=== PATIENT | male | born 1955 | race Caucasian/White ===

== ENCOUNTER 2017-07-26 07:55 | Outpatient (CLI) | payer OTHER ==
[~2017-07-26 07:55] MED LIST: LEVOTHROID50 MCG PO
== END 2017-07-26 15:00 | disposition home or self-care (01) ==
LOC: SONOGRAMA 07:55
DX: K80.00 Calculus of gallbladder with acute cholecystitis without obstruction (principal)

== ENCOUNTER 2017-07-26 08:03 | Outpatient (CLI) | payer OTHER | END 2017-07-26 15:00 | disposition home or self-care (01) | LOC: RX STUDY 08:03 | DX: K42.9 Umbilical hernia without obstruction or gangrene (principal) ==

== ENCOUNTER 2019-01-02 13:29 | Outpatient (CLI) | payer OTHER | END 2019-01-02 13:46 | disposition home or self-care (01) | LOC: SONOGRAMA 13:29 | DX: N40.1 Benign prostatic hyperplasia with lower urinary tract symptoms (principal) ==

== ENCOUNTER 2019-01-27 07:39 | Outpatient (CLI) | payer OTHER | END 2019-01-27 17:00 | disposition home or self-care (01) | LOC: TOM 07:39 | DX: R51 Headache (principal); F17.200 Nicotine dependence, unspecified, uncomplicated ==

== ENCOUNTER → 2019-02-21 | Outpatient (CLI) | payer OTHER | END | disposition home or self-care (01) | LOC: SONOGRAMA 11:56 | DX: E04.2 Nontoxic multinodular goiter (principal) ==

== ENCOUNTER 2019-04-15 15:17 | Outpatient (CLI) | payer OTHER | END 2019-04-15 16:00 | disposition home or self-care (01) | LOC: RAD 15:17 | DX: D23.60 Other benign neoplasm of skin of unspecified upper limb, including shoulder (principal) ==

== ENCOUNTER 2022-04-10 11:13 | Outpatient (CLI) | payer OTHER | END 2022-04-10 11:30 | disposition home or self-care (01) | LOC: SONOGRAMA 11:13 | DX: N32.81 Overactive bladder (principal); N40.1 Benign prostatic hyperplasia with lower urinary tract symptoms ==

== ENCOUNTER 2022-04-10 12:30 | Outpatient (CLI) | payer OTHER | END 2022-04-10 12:31 | disposition home or self-care (01) | LOC: LAB 12:30 | DX: N32.81 Overactive bladder (principal); N40.1 Benign prostatic hyperplasia with lower urinary tract symptoms ==

== ENCOUNTER 2022-07-25 15:37 | Outpatient (CLI) | payer OTHER | END 2022-07-25 15:41 | disposition home or self-care (01) | LOC: RAD 15:37 | DX: J45.40 Moderate persistent asthma, uncomplicated (principal); G47.33 Obstructive sleep apnea (adult) (pediatric); J31.0 Chronic rhinitis ==

== ENCOUNTER 2022-11-28 15:17 | Outpatient (CLI) | payer OTHER | END 2022-11-28 15:23 | disposition home or self-care (01) | LOC: RAD 15:17 | DX: S22.49XA Multiple fractures of ribs, unspecified side, initial encounter for closed fracture (principal) ==

== ENCOUNTER 2023-08-21 15:12 | Outpatient (CLI) | payer OTHER | END 2023-08-21 15:17 | disposition home or self-care (01) | LOC: RAD 15:12 | DX: M48.062 Spinal stenosis, lumbar region with neurogenic claudication (principal) ==

== ENCOUNTER 2023-12-18 13:40 | Outpatient (CLI) | payer OTHER | END 2023-12-18 13:45 | disposition home or self-care (01) | LOC: SONOGRAMA 13:40 | DX: N32.81 Overactive bladder (principal); N40.1 Benign prostatic hyperplasia with lower urinary tract symptoms ==

== ENCOUNTER 2023-12-24 15:09 | Outpatient (CLI) | payer OTHER | END 2023-12-24 15:15 | disposition home or self-care (01) | LOC: RAD 15:09 | DX: M48.062 Spinal stenosis, lumbar region with neurogenic claudication (principal) ==